=== PATIENT | male | born 1980 | race Caucasian/White ===

== ENCOUNTER 2018-01-29 16:46 | Emergency (ER) | payer OTHER ==
[~2018-01-29] VITALS: Ht 180.3 cm; Wt 86.4 kg
[2018-01-29 16:50] VITALS: TEMP 97.2
[2018-01-29] MEDS ORDERED: ZYLOPRIM 300MG300 MG PO (17:22)
[2018-01-29] MEDS ORDERED: THE MEDICINE S200 M2 PO (17:22)
[2018-01-29] MEDS ORDERED: MULTI VITAMINS1 TAB PO (17:23)
[2018-01-29] MEDS ORDERED: INFANTS AQU400 IU/ML (17:23)
[2018-01-29] MEDS ORDERED: EPA FISH OIL1 SGL PO (17:23)
[2018-01-29] MEDS ORDERED: ADVIL200 MG PO (17:24)
[2018-01-29 17:30] LABS: COLLECTION METHOD CLEAN CATCH
[2018-01-29 17:36] LABS: PH 6 (5-8); SQUAMOUS EPITHELIAL None Seen /hpf; URINE APPEARANCE Clear; URINE BACTERIA None Seen /hpf; URINE BILIRUBIN Negative (NEGATIVE); URINE BLOOD Negative (NEGATIVE); URINE COLOR Straw; URINE GLUCOSE Negative (NEGATIVE); URINE KETONE Negative (NEGATIVE); URINE LEUKOCYTE ESTERASE Negative (NEGATIVE); URINE NITRATE Negative (NEGATIVE); URINE PROTEIN(semi-quant) Negative (NEGATIVE); URINE RBC 0-2 /hpf; URINE UROBILINOGEN Negative (NEGATIVE)
[2018-01-29] MEDS ORDERED: LEVAQUIN 750MG750 M1 PO (19:32)
[2018-01-29] MEDS ORDERED: NORCO 325 MG-51 TAB PO (19:35)
[2018-01-29 19:49] VITALS: BP 125/93; PULSE 52
== END 2018-01-29 19:50 | disposition home or self-care (01) ==
LOC: COL.ER 16:46
PROVIDERS: Emergency Medicine
DX: N50.811 Right testicular pain (principal); Z90.89 Acquired absence of other organs
CPT/HCPCS: J1885